=== PATIENT | female | born 1990 | race Caucasian/White ===

== ENCOUNTER → 2017-12-23 | Outpatient (CLI) | payer BC ==
[~2017-12-23] MED LIST: ALBU90OI INH; AMOX500 PO; Amoxicillin500 MG PO; Bactrim Ds Tab1 EACH PO; CEPH500 PO; CIPR500 PO; Cephalexin500 MG PO; Cleocin HCl300 MG PO; DOXY100 PO; HYDACE5 PO; HYDPAM50 PO; IBUP800 PO; MAGIC MOUTHWASH; MEDR150I IM; NAPR500 PO; Nasal & Sinus D30 MG PO; ONDA4 PO; ORTHOCYCLINE; OXYACE5T PO; PERM5TC TOP; PHENA200 PO; PROACE100 PO; PROC5 PO; PROM25 PO; RXHYDACE PO; RXONDA4ODT MM; RXOXYACE PO; RXSULTRIDS PO; RXTRAM50 PO; SULTRIDS PO; SULTRISS PO; TRAM50 PO; TYL; Verotin-Gr Cap1 EACH PO; [UNRECOGNIZED DRUG - OTHER]; [UNRECOGNIZED DRUG - REMARK]
[2017-12-24 12:12] LABS: Source VAG/CERVIX
== END ==
LOC: LAB SHORT 15:39 → LAB 15:39
PROVIDERS: Obstetrics & Gynecology
DX: Z36.89 Encounter for other specified antenatal screening (principal)
CPT/HCPCS: 87491; 87591; G0123

== ENCOUNTER → 2018-05-18 | Outpatient (CLI) | payer BC ==
[~2018-05-18] MED LIST changes: +Q-Tussin100 MG/5 M PO; +Zofran Odt4 MG PO
== END | disposition home or self-care (01) ==
LOC: LAB 18:03 → LAB SHORT 18:03
DX: Z34.80 Encounter for supervision of other normal pregnancy, unspecified trimester (principal)
CPT/HCPCS: 87081; 87653

== ENCOUNTER 2018-06-09 03:49 | Inpatient (IN) | payer BC ==
[~2018-06-09] VITALS: Ht 170.2 cm; Wt 89.8 kg
[2018-06-09 04:38] LABS: BASOPHILS ABSOLUTE AUTO 0.04 K/mm3 (0.00-0.23); BASOPHILS PERCENT AUTO 0 % (0-2); EOSINOPHILS ABSOLUTE AUTO 0.18 K/mm3 (0.00-0.68); EOSINOPHILS PERCENT AUTO 2 % (0-6); Hematocrit 33.3 % (33.0-51.0); Hemoglobin 10.9 g/dL (11.5-16.0); IMMATURE GRAN ABSOLUTE AUTO 0.08 K/mm3 (0.00-0.10); IMMATURE GRAN PERCENT AUTO 1 % (0-1); LYMPHOCYTES ABSOLUTE AUTO 2.53 K/mm3 (0.84-5.20); LYMPHOCYTES PERCENT AUTO 21 % (21-46); MONOCYTES ABSOLUTE AUTO 0.93 K/mm3 (0.16-1.47); MONOCYTES PERCENT AUTO 8 % (4-13); Mean Corpuscular HGB 27.7 pg (26.0-34.0); Mean Corpuscular HGB Conc 32.7 g/dL (31.5-36.5); Mean Corpuscular Volume 85 fL (80-100); Mean Platelet Volume 10.2 fL (9.1-12.4); NEUTROPHILS ABSOLUTE AUTO 8.51 K/mm3 (1.96-9.15); NEUTROPHILS PERCENT AUTO 69 % (41-73); Platelet Count 246 K/mm3 (150-400); RDW Coefficient Variation 14.3 % (11.7-14.2); Red Blood Cell Count 3.94 M/mm3 (3.80-5.20); White Blood Cell Count 12.27 K/mm3 (4.00-11.30)
[2018-06-10 06:06] LABS: Hematocrit 32.6 % (33.0-51.0); Hemoglobin 10.8 g/dL (11.5-16.0); Mean Corpuscular HGB 27.8 pg (26.0-34.0); Mean Corpuscular HGB Conc 33.1 g/dL (31.5-36.5); Mean Corpuscular Volume 84 fL (80-100); Mean Platelet Volume 10.5 fL (9.1-12.4); Platelet Count 225 K/mm3 (150-400); RDW Coefficient Variation 14.3 % (11.7-14.2); RDW Standard Deviation 43.4 fL (35.1-46.3); Red Blood Cell Count 3.89 M/mm3 (3.80-5.20); White Blood Cell Count 12.88 K/mm3 (4.00-11.30)
== END 2018-06-10 13:55 | disposition home or self-care (01) | DRG 775 ==
LOC: BC 03:49
PROVIDERS: Obstetrics & Gynecology
PROC: 10E0XZZ Delivery of Products of Conception, External Approach (ICD-10-PCS; principal; 2018-06-09)
PROC: 3E033VJ Introduction of Other Hormone into Peripheral Vein, Percutaneous Approach (ICD-10-PCS; 2018-06-09)
PROC: 3E0R3BZ Introduction of Anesthetic Agent into Spinal Canal, Percutaneous Approach (ICD-10-PCS; 2018-06-09)
PROC: 10907ZC Drainage of Amniotic Fluid, Therapeutic from Products of Conception, Via Natural or Artificial Opening (ICD-10-PCS; 2018-06-09)
DX: O80 Encounter for full-term uncomplicated delivery (principal); Z3A.39 39 weeks gestation of pregnancy; Z37.0 Single live birth
CPT/HCPCS: 36415; 51702; 85025; 85027; 85460; 87081; 96372; J1885; J2590; J2790; J3010; J7120

== ENCOUNTER 2018-10-29 22:12 | Emergency (ER) | payer BC, OTHER ==
[~2018-10-29] VITALS: Ht 172.7 cm; Wt 81.7 kg
[2018-10-29 23:00] LABS: BASOPHILS ABSOLUTE AUTO 0.09 K/mm3 (0.00-0.23); BASOPHILS PERCENT AUTO 1 % (0-2); EOSINOPHILS ABSOLUTE AUTO 0.11 K/mm3 (0.00-0.68); EOSINOPHILS PERCENT AUTO 1 % (0-6); Hematocrit 41.5 % (33.0-51.0); Hemoglobin 13.5 g/dL (11.5-16.0); IMMATURE GRAN ABSOLUTE AUTO 0.05 K/mm3 (0.00-0.10); IMMATURE GRAN PERCENT AUTO 0 % (0-1); LYMPHOCYTES ABSOLUTE AUTO 2.44 K/mm3 (0.84-5.20); LYMPHOCYTES PERCENT AUTO 17 % (21-46); MONOCYTES ABSOLUTE AUTO 0.64 K/mm3 (0.16-1.47); MONOCYTES PERCENT AUTO 5 % (4-13); Mean Corpuscular HGB Conc 32.5 g/dL (31.5-36.5); Mean Corpuscular Volume 86 fL (80-100); Mean Platelet Volume 9.9 fL (9.1-12.4); NEUTROPHILS ABSOLUTE AUTO 10.76 K/mm3 (1.96-9.15); NEUTROPHILS PERCENT AUTO 76 % (41-73); Platelet Count 289 K/mm3 (150-400); RDW Coefficient Variation 12.5 % (11.7-14.2); Red Blood Cell Count 4.83 M/mm3 (3.80-5.20); White Blood Cell Count 14.09 K/mm3 (4.00-11.30)
[2018-10-29 23:18] LABS: Alanine Aminotransfer (ALT/SGP 68 U/L (12-78); Albumin, Blood 4.2 g/dL (3.4-5.0); Albumin/Globulin Ratio 1.1 (0.8-1.8); Alk Phos 76 U/L (50-136); Anion Gap 10 mmol/L (6-16); Aspartate Aminotrans (AST/SGOT 86 U/L (12-37); Bilirubin, Total 0.3 mg/dL (0.1-1.0); Blood Urea Nitrogen 11 mg/dL (8-24); Bun/Creatinine Ratio 12.6 (12.0-20.0); CO2, Blood 28 mmol/L (21-32); Chloride, Blood 106 mmol/L (98-108); Creatinine, Blood 0.88 mg/dL (0.40-1.00); Globulin, Blood 3.8 g/dL (2.2-4.0); Glomerular Filtration Rate >60 (60-); Glucose, Blood 95 mg/dL (70-99); Potassium, Blood 3.3 mmol/L (3.5-5.5); Sodium, Blood 144 mmol/L (136-145)
[2018-10-30 00:11] LABS: Bilirubin, Urine Neg (Neg); Blood, Urine 4+ (Neg); Glucose Qualitative, Urine Neg (Neg); Ketones, Urine 1+ (Neg); Leukocyte Esterase, Urine 1+ (Neg); Nitrite, Urine Neg (Neg); Protein, Urine 2+ (Neg); Source, Urine Clean Catch; Urobilinogen, Urine NORM (Normal)
[2018-10-30] MEDS ORDERED: Protonix40 MG PO (00:13)
[2018-10-30] MEDS ORDERED: ONDA4ODT MM (00:13)
[2018-10-30 00:18] LABS: Appearance, Urine Clear (Clear); Color, Urine Yellow (P-Yellow)
[2018-10-30 00:20] LABS: Amorphous Light (0-Heavy); Bacteria Mod /hpf; Mucus Light (0-Heavy); Red Blood Cells, Urine 0-2 /hpf (0-2); Squamous Epithelial Cells Few /hpf (Few)
== END 2018-10-30 01:05 | disposition home or self-care (01) ==
LOC: ER 22:12
PROVIDERS: Emergency Medicine
DX: K29.70 Gastritis, unspecified, without bleeding (principal); F17.200 Nicotine dependence, unspecified, uncomplicated
CPT/HCPCS: 36415; 80053; 81001; 81025; 83690; 85025; 87086; 96374; 99283-25; J2405

== ENCOUNTER → 2018-12-24 | Outpatient (CLI) | payer BC, OTHER ==
[~2018-12-24] MED LIST changes: +ONDA4ODT MM; +Protonix40 MG PO
[2018-12-25 21:06] LABS: CHLAMYDIA TRACHOMATIS, NAA Negative (Negative); NEISSERIA GONORRHOEAE, NAA Negative (Negative)
== END | disposition home or self-care (01) ==
LOC: LAB SHORT 11:07 → LAB 11:07
PROVIDERS: Obstetrics & Gynecology
DX: Z11.3 Encounter for screening for infections with a predominantly sexual mode of transmission (principal)
CPT/HCPCS: 87491; 87591

== ENCOUNTER 2018-12-26 12:07 | Emergency (ER) | payer BC, OTHER ==
[~2018-12-26] VITALS: Ht 172.7 cm; Wt 78.9 kg
[2018-12-26 12:50] LABS: BASOPHILS ABSOLUTE AUTO 0.05 K/mm3 (0.00-0.23); BASOPHILS PERCENT AUTO 1 % (0-2); EOSINOPHILS ABSOLUTE AUTO 0.11 K/mm3 (0.00-0.68); EOSINOPHILS PERCENT AUTO 1 % (0-6); Hematocrit 44.7 % (33.0-51.0); Hemoglobin 14.6 g/dL (11.5-16.0); IMMATURE GRAN ABSOLUTE AUTO 0.02 K/mm3 (0.00-0.10); IMMATURE GRAN PERCENT AUTO 0 % (0-1); LYMPHOCYTES ABSOLUTE AUTO 2.41 K/mm3 (0.84-5.20); LYMPHOCYTES PERCENT AUTO 31 % (21-46); MONOCYTES PERCENT AUTO 5 % (4-13); Mean Corpuscular HGB 27.7 pg (26.0-34.0); Mean Corpuscular HGB Conc 32.7 g/dL (31.5-36.5); Mean Corpuscular Volume 85 fL (80-100); Mean Platelet Volume 10.2 fL (9.1-12.4); NEUTROPHILS ABSOLUTE AUTO 4.74 K/mm3 (1.96-9.15); NEUTROPHILS PERCENT AUTO 61 % (41-73); Platelet Count 283 K/mm3 (150-400); RDW Coefficient Variation 12.5 % (11.7-14.2); RDW Standard Deviation 38.6 fL (35.1-46.3); Red Blood Cell Count 5.27 M/mm3 (3.80-5.20); White Blood Cell Count 7.73 K/mm3 (4.00-11.30)
[2018-12-26 13:18] LABS: Alanine Aminotransfer (ALT/SGP 21 U/L (12-78); Albumin, Blood 4.4 g/dL (3.4-5.0); Albumin/Globulin Ratio 1.2 (0.8-1.8); Alk Phos 61 U/L (50-136); Anion Gap 6 mmol/L (6-16); Aspartate Aminotrans (AST/SGOT 11 U/L (12-37); Bilirubin, Total 0.4 mg/dL (0.1-1.0); Blood Urea Nitrogen 10 mg/dL (8-24); Bun/Creatinine Ratio 12.9 (12.0-20.0); CO2, Blood 29 mmol/L (21-32); Calcium, Blood 9.1 mg/dL (8.5-10.1); Chloride, Blood 107 mmol/L (98-108); Creatinine, Blood 0.77 mg/dL (0.40-1.00); Globulin, Blood 3.6 g/dL (2.2-4.0); Glomerular Filtration Rate >60 (60-); Glucose, Blood 96 mg/dL (70-99); Potassium, Blood 3.7 mmol/L (3.5-5.5); Sodium, Blood 142 mmol/L (136-145)
== END 2018-12-26 14:47 | disposition home or self-care (01) ==
LOC: ER 12:07
PROVIDERS: Physician Assistant
DX: N93.8 Other specified abnormal uterine and vaginal bleeding (principal); R53.1 Weakness; Z87.01 Personal history of pneumonia (recurrent)
CPT/HCPCS: 36415; 76830; 76856; 80053; 85025; 99284-25

== ENCOUNTER 2019-01-28 09:35 | Emergency (ER) | payer BC, OTHER ==
[~2019-01-28] VITALS: Ht 172.7 cm; Wt 81.7 kg
[2019-01-28 11:11] LABS: BASOPHILS ABSOLUTE AUTO 0.05 K/mm3 (0.00-0.23); BASOPHILS PERCENT AUTO 1 % (0-2); EOSINOPHILS ABSOLUTE AUTO 0.05 K/mm3 (0.00-0.68); EOSINOPHILS PERCENT AUTO 1 % (0-6); Hemoglobin 13.4 g/dL (11.5-16.0); IMMATURE GRAN ABSOLUTE AUTO 0.01 K/mm3 (0.00-0.10); IMMATURE GRAN PERCENT AUTO 0 % (0-1); LYMPHOCYTES ABSOLUTE AUTO 1.34 K/mm3 (0.84-5.20); LYMPHOCYTES PERCENT AUTO 22 % (21-46); MONOCYTES ABSOLUTE AUTO 0.52 K/mm3 (0.16-1.47); MONOCYTES PERCENT AUTO 9 % (4-13); Mean Corpuscular HGB 27.9 pg (26.0-34.0); Mean Corpuscular HGB Conc 31.9 g/dL (31.5-36.5); Mean Corpuscular Volume 88 fL (80-100); Mean Platelet Volume 10.8 fL (9.1-12.4); NEUTROPHILS ABSOLUTE AUTO 4.15 K/mm3 (1.96-9.15); NEUTROPHILS PERCENT AUTO 68 % (41-73); Platelet Count 251 K/mm3 (150-400); RDW Coefficient Variation 12.6 % (11.7-14.2); RDW Standard Deviation 40.5 fL (35.1-46.3); White Blood Cell Count 6.12 K/mm3 (4.00-11.30)
[2019-01-28 11:24] LABS: Anion Gap 9 mmol/L (6-16); Blood Urea Nitrogen 6 mg/dL (8-24); Bun/Creatinine Ratio 8.1 (12.0-20.0); CO2, Blood 21 mmol/L (21-32); Calcium, Blood 9.3 mg/dL (8.5-10.1); Chloride, Blood 111 mmol/L (98-108); Creatinine, Blood 0.74 mg/dL (0.40-1.00); Glomerular Filtration Rate >60 (60-); Glucose, Blood 106 mg/dL (70-99); Potassium, Blood 3.7 mmol/L (3.5-5.5); Sodium, Blood 141 mmol/L (136-145)
[2019-01-28 11:39] LABS: Source, Urine Clean Catch
[2019-01-28 11:42] LABS: Bilirubin, Urine Neg (Neg); Blood, Urine Neg (Neg); Glucose Qualitative, Urine Neg (Neg); Ketones, Urine 1+ (Neg); Leukocyte Esterase, Urine Neg (Neg); Nitrite, Urine Neg (Neg); Protein, Urine Neg (Neg); Urobilinogen, Urine NORM (Normal)
[2019-01-28 12:04] LABS: Appearance, Urine Clear (Clear); Color, Urine Yellow (P-Yellow)
[2019-01-28] MEDS ORDERED: Zofran4 MG PO (12:44)
[2019-01-28] MEDS ORDERED: Norco 5-325 Ta1 EACH PO (12:44)
== END 2019-01-28 13:15 | disposition home or self-care (01) ==
LOC: ER 09:35
PROVIDERS: Emergency Medicine
DX: I88.9 Nonspecific lymphadenitis, unspecified (principal); K08.89 Other specified disorders of teeth and supporting structures; R51 Headache; F17.200 Nicotine dependence, unspecified, uncomplicated; Z87.01 Personal history of pneumonia (recurrent)
CPT/HCPCS: 36415; 80048; 81003; 81025; 85025; 96361; 96374; 96375; 99283-25; J1100; J1885; J2405; J7030

== ENCOUNTER 2019-05-31 07:56 | Day surgery (SDC) | payer BC, SELFPAY ==
[~2019-05-31] VITALS: Ht 170.2 cm; Wt 80.7 kg
[~2019-05-31 07:56] MED LIST changes: +Norco 5-325 Ta1 EACH PO; +Zofran4 MG PO
--- NOTE | 2019-05-31 08:46 | NUR ---
Ambulatory in Day Surgery History, Chart, Medications and Allergies reviewed before start of procedure.Lungs clear T/O to Auscultation. Patient confirms NPO status and agrees with scheduled surgery. Patient reports completing Chlorhexadine shower X2 prior to admission to hospital.Patient States Post-Procedure ride home has been arranged.
--- NOTE | 2019-05-31 11:21 | NUR ---
Patient up to Ambulate independently. Gait steady. Discharge instructions reviewed with patient. Patient verbalizes understanding. Copy given to patient to take home. Patient States Post-Procedure ride home has been arranged. Discharged via wheelchair to private car for ride home.
== END 2019-05-31 22:45 | disposition home or self-care (01) ==
LOC: ORSCMMR 07:56 → ORD 09:30 → ORSCMMR 22:45
PROVIDERS: Surgery
PROC: 0JB90ZZ Excision of Buttock Subcutaneous Tissue and Fascia, Open Approach (ICD-10-PCS; principal; 2019-05-31 09:30)
DX: L05.01 Pilonidal cyst with abscess (principal); F17.210 Nicotine dependence, cigarettes, uncomplicated
CPT/HCPCS: 88304; A9270-GY; J0690; J2250; J2704; J2710; J3010; J7120

== ENCOUNTER 2019-09-13 20:12 | Emergency (ER) | payer OTHER ==
[~2019-09-13] VITALS: Ht 170.2 cm; Wt 79.4 kg
[2019-09-13 20:59] LABS: Influenza A Negative (NEGATIVE); Influenza B Positive (NEGATIVE)
[2019-09-13] MEDS ORDERED: ONDA4ODT MM (22:01)
[2019-09-13] MEDS ORDERED: Tamiflu75 MG PO (22:01)
== END 2019-09-13 22:06 | disposition home or self-care (01) ==
LOC: ER 20:12
PROVIDERS: Physician Assistant
DX: J10.1 Influenza due to other identified influenza virus with other respiratory manifestations (principal); F17.200 Nicotine dependence, unspecified, uncomplicated
CPT/HCPCS: 87804; 99283

== ENCOUNTER 2020-06-02 17:01 | Emergency (ER) | payer OTHER ==
[~2020-06-02] VITALS: Ht 170.2 cm; Wt 78.9 kg
[~2020-06-02 17:01] MED LIST changes: +Tamiflu75 MG PO
[2020-06-02] MEDS ORDERED: Norco 5-325 Ta1 EACH PO (18:12)
[2020-06-02] MEDS ORDERED: CEPH500 PO (18:12)
== END 2020-06-02 18:27 | disposition home or self-care (01) ==
LOC: ER 17:01
DX: L05.91 Pilonidal cyst without abscess (principal)
CPT/HCPCS: 10081; 99283-25

== ENCOUNTER → 2020-06-05 | Outpatient (CLI) | payer OTHER ==
[2020-06-05 15:12] LABS: BASOPHILS ABSOLUTE AUTO 0.08 K/mm3 (0.00-0.23); BASOPHILS PERCENT AUTO 1 % (0-2); EOSINOPHILS ABSOLUTE AUTO 0.18 K/mm3 (0.00-0.68); EOSINOPHILS PERCENT AUTO 2 % (0-6); Hematocrit 45.1 % (33.0-51.0); Hemoglobin 14.2 g/dL (11.5-16.0); IMMATURE GRAN ABSOLUTE AUTO 0.01 K/mm3 (0.00-0.10); IMMATURE GRAN PERCENT AUTO 0 % (0-1); LYMPHOCYTES ABSOLUTE AUTO 2.83 K/mm3 (0.84-5.20); LYMPHOCYTES PERCENT AUTO 37 % (21-46); MONOCYTES ABSOLUTE AUTO 0.54 K/mm3 (0.16-1.47); MONOCYTES PERCENT AUTO 7 % (4-13); Mean Corpuscular HGB Conc 31.5 g/dL (31.5-36.5); Mean Corpuscular Volume 92 fL (80-100); Mean Platelet Volume 10.6 fL (9.1-12.4); NEUTROPHILS ABSOLUTE AUTO 3.95 K/mm3 (1.96-9.15); NEUTROPHILS PERCENT AUTO 52 % (41-73); Platelet Count 282 K/mm3 (150-400); RDW Coefficient Variation 11.7 % (11.7-14.2); RDW Standard Deviation 39.6 fL (35.1-46.3); Red Blood Cell Count 4.89 M/mm3 (3.80-5.20); White Blood Cell Count 7.59 K/mm3 (4.00-11.30)
[2020-06-05 15:43] LABS: Alanine Aminotransfer (ALT/SGP 26 U/L (12-78); Albumin, Blood 4.1 g/dL (3.4-5.0); Alk Phos 63 U/L (50-136); Anion Gap 5 mmol/L (6-16); Aspartate Aminotrans (AST/SGOT 20 U/L (12-37); Bilirubin, Total 0.3 mg/dL (0.1-1.0); Blood Urea Nitrogen 12 mg/dL (8-24); Bun/Creatinine Ratio 17.6 (12.0-20.0); CO2, Blood 29 mmol/L (21-32); Calcium, Blood 9.7 mg/dL (8.5-10.1); Chloride, Blood 105 mmol/L (98-108); Creatinine, Blood 0.68 mg/dL (0.40-1.00); Globulin, Blood 4.1 g/dL (2.2-4.0); Glomerular Filtration Rate >60 (60-); Glucose, Blood 87 mg/dL (70-99); Potassium, Blood 3.8 mmol/L (3.5-5.5); Sodium, Blood 139 mmol/L (136-145); Total Protein, Blood 8.2 g/dL (6.4-8.2)
== END ==
LOC: LAB SHORT 13:34 → LAB 13:34
PROVIDERS: Nurse Practitioner Family
DX: Z13.29 Encounter for screening for other suspected endocrine disorder (principal); L05.91 Pilonidal cyst without abscess
CPT/HCPCS: 80053; 84443; 85025

== ENCOUNTER 2021-04-30 16:50 | Emergency (ER) | payer OTHER ==
[~2021-04-30] VITALS: Ht 170.2 cm; Wt 78.9 kg
== END 2021-04-30 18:00 | disposition home or self-care (01) ==
LOC: ER 16:50
DX: U07.1 COVID-19 (principal); F17.200 Nicotine dependence, unspecified, uncomplicated
CPT/HCPCS: 99282

== ENCOUNTER → 2021-12-21 | Outpatient (CLI) | payer OTHER ==
[2021-12-22 09:45] LABS: Candida species (DNA Probe) Negative (NEGATIVE); G. vaginalis (DNA Probe) Positive (NEGATIVE); T. vaginalis (DNA Probe) Negative (NEGATIVE)
[2021-12-23 00:10] LABS: CHLAMYDIA TRACHOMATIS, NAA Negative (Negative)
== END | disposition home or self-care (01) ==
LOC: LAB 12:27 → LAB SHORT 12:27
PROVIDERS: Chiropractor
DX: N94.10 Unspecified dyspareunia (principal); N89.8 Other specified noninflammatory disorders of vagina
CPT/HCPCS: 87070; 87205; 87480; 87491; 87510; 87591; 87660

== ENCOUNTER 2021-12-24 14:27 | Emergency (ER) | payer OTHER ==
[~2021-12-24] VITALS: Ht 172.7 cm; Wt 60.8 kg
[2021-12-24 16:04] LABS: BASOPHILS ABSOLUTE AUTO 0.07 K/mm3 (0.00-0.23); BASOPHILS PERCENT AUTO 1 % (0-2); EOSINOPHILS ABSOLUTE AUTO 0.03 K/mm3 (0.00-0.68); EOSINOPHILS PERCENT AUTO 0 % (0-6); Hematocrit 43.2 % (33.0-51.0); Hemoglobin 14.8 g/dL (11.5-16.0); IMMATURE GRAN ABSOLUTE AUTO 0.04 K/mm3 (0.00-0.10); IMMATURE GRAN PERCENT AUTO 0 % (0-1); LYMPHOCYTES ABSOLUTE AUTO 1.89 K/mm3 (0.84-5.20); LYMPHOCYTES PERCENT AUTO 16 % (21-46); MONOCYTES ABSOLUTE AUTO 0.52 K/mm3 (0.16-1.47); MONOCYTES PERCENT AUTO 4 % (4-13); Mean Corpuscular HGB 29.2 pg (26.0-34.0); Mean Corpuscular HGB Conc 34.3 g/dL (31.5-36.5); Mean Corpuscular Volume 85 fL (80-100); Mean Platelet Volume 10.2 fL (9.1-12.4); NEUTROPHILS ABSOLUTE AUTO 9.56 K/mm3 (1.96-9.15); NEUTROPHILS PERCENT AUTO 79 % (41-73); Platelet Count 317 K/mm3 (150-400); RDW Coefficient Variation 11.7 % (11.7-14.2); RDW Standard Deviation 35.9 fL (35.1-46.3); Red Blood Cell Count 5.06 M/mm3 (3.80-5.20); White Blood Cell Count 12.11 K/mm3 (4.00-11.30)
[2021-12-24 16:17] LABS: Alanine Aminotransfer (ALT/SGP 29 U/L (12-78); Albumin, Blood 4.8 g/dL (3.4-5.0); Albumin/Globulin Ratio 1.6 (0.8-1.8); Alk Phos 46 U/L (50-136); Anion Gap 6 mmol/L (6-16); Aspartate Aminotrans (AST/SGOT 18 U/L (12-37); Bilirubin, Total 0.7 mg/dL (0.1-1.0); Blood Urea Nitrogen 7 mg/dL (8-24); Bun/Creatinine Ratio 9.8 (12.0-20.0); CO2, Blood 25 mmol/L (21-32); Calcium, Blood 9.7 mg/dL (8.5-10.1); Chloride, Blood 107 mmol/L (98-108); Creatinine, Blood 0.71 mg/dL (0.40-1.00); Glomerular Filtration Rate >60 (60-); Glucose, Blood 116 mg/dL (70-99); Potassium, Blood 3.5 mmol/L (3.5-5.5); Sodium, Blood 138 mmol/L (136-145); Total Protein, Blood 7.8 g/dL (6.4-8.2)
[2021-12-24 16:34] LABS: Source, Urine Clean Catch
[2021-12-24 16:41] LABS: Influenza A, PCR NEGATIVE (NEGATIVE); Influenza B, PCR NEGATIVE (NEGATIVE); Resp Syncytial Virus, PCR NEGATIVE (NEGATIVE); SARS-Cov-2 (COVID-19) PCR, MMC NEGATIVE (NEGATIVE)
[2021-12-24 16:59] LABS: Appearance, Urine Clear (Clear); Bilirubin, Urine Neg (Neg); Blood, Urine Neg (Neg); Color, Urine Yellow (P-Yellow); Glucose Qualitative, Urine Neg (Neg); Ketones, Urine 1+ (Neg); Leukocyte Esterase, Urine Neg (Neg); Nitrite, Urine Neg (Neg); Protein, Urine Neg (Neg); Urobilinogen, Urine NORM (Normal)
[2021-12-24] MEDS ORDERED: ONDA4ODT MM (17:37)
[2021-12-24] MEDS ORDERED: Norco 5-325 Ta1 EACH PO (17:37)
== END 2021-12-24 17:56 | disposition home or self-care (01) ==
LOC: ER 14:27
PROVIDERS: Physician Assistant
DX: N83.209 Unspecified ovarian cyst, unspecified side (principal); Z20.822 Contact with and (suspected) exposure to COVID-19
CPT/HCPCS: 0241U; 36415; 80053; 81003; 84703; 85025; 96374; 96375; 99284-25; J1885; J2405; J7030

== ENCOUNTER 2022-09-03 15:02 | Emergency (ER) | payer OTHER ==
[~2022-09-03] VITALS: Ht 170.2 cm; Wt 56.7 kg
[2022-09-03 16:25] LABS: Source, Urine Clean Catch
[2022-09-03 16:29] LABS: Bilirubin, Urine Neg (Neg); Blood, Urine Neg (Neg); Glucose Qualitative, Urine Neg (Neg); Ketones, Urine Neg (Neg); Leukocyte Esterase, Urine Neg (Neg); Nitrite, Urine Neg (Neg); Protein, Urine 2+ (Neg); Specific Gravity, Urine 1.005 (1.003-1.022); Urobilinogen, Urine NORM (Normal)
[2022-09-03 16:36] LABS: Appearance, Urine Clear (Clear); Color, Urine Pale Yellow (P-Yellow)
[2022-09-03 16:37] LABS: Amorphous Light (0-Heavy); Bacteria Few /hpf; Red Blood Cells, Urine 0-2 /hpf (0-2); Squamous Epithelial Cells Few /hpf (Few); White Blood Cells, Urine 0-2 /hpf (0-5)
== END 2022-09-03 17:23 | disposition home or self-care (01) ==
LOC: ER 15:02
PROVIDERS: Physician Assistant
DX: J02.8 Acute pharyngitis due to other specified organisms (principal); E28.2 Polycystic ovarian syndrome; Z79.899 Other long term (current) drug therapy; F17.200 Nicotine dependence, unspecified, uncomplicated
CPT/HCPCS: 81001; 81025; 87430; J1885

== ENCOUNTER → 2024-08-21 | Outpatient (CLI) | payer OTHER | LOC: LAB SHORT 15:08 → LAB 15:08 | DX: J02.9 Acute pharyngitis, unspecified (principal) | CPT/HCPCS: 87081 ==

== ENCOUNTER 2025-03-31 14:14 | Emergency (ER) | payer OTHER ==
[~2025-03-31] VITALS: Ht 165.1 cm; Wt 54.4 kg
[2025-03-31 16:10] LABS: U Amphetamine Screen DETECTED; U Barbituate Screen Not Detected; U Methamphetamine Screen Not Detected
[2025-03-31 16:11] LABS: U Benzodiazapine Screen Not Detected; U Buprenorphine Screen Not Detected; U Cannabinoids Screen DETECTED; U Cocaine Screen Not Detected; U Methadone Screen Not Detected; U Opiates Screen Not Detected; U Oxycodone Screen Not Detected; U Phencyclidine Screen Not Detected
[2025-03-31 17:31] VITALS: BP 129/85
[2025-03-31] MEDS ORDERED: AMPDEX10 (17:33)
[2025-03-31] MEDS ORDERED: HYDHCL25 PO (18:10)
== END 2025-03-31 18:30 | disposition home or self-care (01) ==
LOC: ER 14:14
PROVIDERS: Physician Assistant
DX: F12.90 Cannabis use, unspecified, uncomplicated (principal); F41.9 Anxiety disorder, unspecified; Z88.8 Allergy status to other drugs, medicaments and biological substances; Z79.899 Other long term (current) drug therapy; F17.200 Nicotine dependence, unspecified, uncomplicated
CPT/HCPCS: 99283

== ENCOUNTER 2025-04-01 01:28 | Observation (INO) | payer OTHER ==
[~2025-04-01] VITALS: Ht 167.6 cm; Wt 65.8 kg
[~2025-04-01 01:28] MED LIST changes: +AMPDEX10; +HYDHCL25 PO
[2025-04-01 01:38] VITALS: BP 133/78
[2025-04-01 02:10] LABS: BASOPHILS ABSOLUTE AUTO 0.10 K/mm3 (0.00-0.23); BASOPHILS PERCENT AUTO 1 % (0-2); EOSINOPHILS ABSOLUTE AUTO 0.05 K/mm3 (0.00-0.68); EOSINOPHILS PERCENT AUTO 1 % (0-6); Hematocrit 43.4 % (33.0-51.0); Hemoglobin 15.2 g/dL (11.5-16.0); IMMATURE GRAN ABSOLUTE AUTO 0.02 K/mm3 (0.00-0.10); IMMATURE GRAN PERCENT AUTO 0 % (0-1); LYMPHOCYTES ABSOLUTE AUTO 2.87 K/mm3 (0.84-5.20); LYMPHOCYTES PERCENT AUTO 32 % (21-46); MONOCYTES ABSOLUTE AUTO 0.63 K/mm3 (0.16-1.47); MONOCYTES PERCENT AUTO 7 % (4-13); Mean Corpuscular HGB Conc 35.0 g/dL (31.5-36.5); Mean Corpuscular Volume 87 fL (80-100); NEUTROPHILS ABSOLUTE AUTO 5.24 K/mm3 (1.96-9.15); NEUTROPHILS PERCENT AUTO 59 % (41-73); NRBC ABSOLUTE 0.00 K/mm3 (0.00-0.02); NRBC Auto 0.0 /100 WBC (0.0-0.2); Platelet Count 319 K/mm3 (150-400); RDW Coefficient Variation 11.2 % (11.7-14.2); RDW Standard Deviation 35.6 fL (35.1-46.3)
[2025-04-01 02:12] LABS: Alanine Aminotransfer (ALT/SGP 23.0 U/L (12-78); Albumin, Blood 5.0 g/dL (3.4-5.0); Albumin/Globulin Ratio 1.6 (0.8-1.8); Anion Gap 10.0 mmol/L (3-11); Aspartate Aminotrans (AST/SGOT 21.0 U/L (12-37); Bilirubin, Total 0.7 mg/dL (0.1-1.0); Blood Urea Nitrogen 14.0 mg/dL (8-24); CO2, Blood 28.0 mmol/L (21-32); Calcium, Blood 9.2 mg/dL (8.5-10.1); Chloride, Blood 104.0 mmol/L (98-108); Creatinine, Blood 0.94 mg/dL (0.40-1.00); Globulin, Blood 3.2 g/dL (2.2-4.0); Glucose, Blood 127.0 mg/dL (70-99); Potassium, Blood 3.6 mmol/L (3.5-5.5); Sodium, Blood 138.0 mmol/L (136-145); Total Protein, Blood 8.2 g/dL (6.4-8.2)
[2025-04-01] MEDS ORDERED: NS 1,000 ML IV SCH (03:30)
[2025-04-01] MEDS ORDERED: Diazepam 5 MG / ML 2ML SYR IV ONE (04:30)
[2025-04-01 06:21] LABS: Source, Urine Clean Catch
[2025-04-01 06:27] LABS: Bilirubin, Urine Neg (Neg); Glucose Qualitative, Urine Neg (Neg); Ketones, Urine Neg (Neg); Leukocyte Esterase, Urine Neg (Neg); Protein, Urine 1+ (Neg); Specific Gravity, Urine 1.010 (1.003-1.022); Urobilinogen, Urine NORM (Normal)
[2025-04-01 06:39] LABS: U Cannabinoids Screen DETECTED
[2025-04-01 06:40] LABS: U Amphetamine Screen DETECTED; U Barbituate Screen Not Detected; U Benzodiazapine Screen Not Detected; U Buprenorphine Screen Not Detected; U Cocaine Screen Not Detected; U Methadone Screen Not Detected; U Methamphetamine Screen Not Detected; U Opiates Screen Not Detected; U Oxycodone Screen Not Detected; U Phencyclidine Screen Not Detected
[2025-04-01 07:17] LABS: Color, Urine Pale Yellow (P-Yellow)
[2025-04-01 07:18] LABS: Red Blood Cells, Urine 0-2 /hpf (0-2); White Blood Cells, Urine 0-2 /hpf (0-5)
[2025-04-01] MEDS ORDERED: Ondansetron 4 MG SoluTab SL ONE (07:45)
== END 2025-04-01 14:20 | disposition other institution (70) ==
LOC: ER 01:28 → EOR 01:29
PROVIDERS: ADMIT Emergency Medicine
DX: F32.A Depression, unspecified (principal); F43.25 Adjustment disorder with mixed disturbance of emotions and conduct; F90.9 Attention-deficit hyperactivity disorder, unspecified type; F12.10 Cannabis abuse, uncomplicated; F17.200 Nicotine dependence, unspecified, uncomplicated; Z86.14 Personal history of Methicillin resistant Staphylococcus aureus infection; Z79.899 Other long term (current) drug therapy; Z88.6 Allergy status to analgesic agent; Z91.038 Other insect allergy status
CPT/HCPCS: 80053; 81001; 84703; 85025; 96374; 99285-25; A9270; G0378; J3360; J7030

== ENCOUNTER 2025-04-01 10:52 | Inpatient (IN) | payer OTHER ==
[~2025-04-01] VITALS: Ht 172.7 cm; Wt 55.1 kg
[2025-04-01] MEDS ORDERED: Ondansetron 4 MG SoluTab MM PRN (13:55)
[2025-04-01] MEDS ORDERED: Polyethylene Glycol 3350 17 gm PO PRN (13:55)
[2025-04-01] MEDS ORDERED: DiphenhydrAMINE HCl 50 MG/ML 1ML Vial IM PRN (14:00)
[2025-04-01] MEDS ORDERED: Haloperidol Lactate Inj. 5 MG/ML Injection IM PRN (14:00)
[2025-04-01] MEDS ORDERED: Aluminum Hydroxide 320MG/5ML 473 ML PO PRN (14:05)
[2025-04-01 14:38] VITALS: BP 126/85
[2025-04-01 15:14] VITALS: BP 126/85
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
[2025-04-01 19:21] VITALS: BP 127/82
--- NOTE | 2025-04-02 04:45 | NUR ---
SHIFT SUMMARY: PATIENT WAS IN THE DINING ROOM EATING DINNER AT THE BEGINNING OF THE SHIFT. SHE CAME OUT AND SAT IN A CHAIR IN THE HALLWAY AND CURLED UP IN A BALL. PEER APPROACHED HER AND BEGAN TALKING TO HER IN A PLEASANT MANNER, AND SHE ENGAGED APPROPRIATELY IN CONVERSATION. SHE WAS ABLE TO ANSWER AIR LAUNCH WEAPONS TECHNICIAN QUESTIONS IN A LOGICAL AND LINEAR MANNER. SHE WAS COOPERATIVE WITH CARES, AND COMPLIANT WITH EVENING MEDICATIONS. SHE DENIED SUICIDAL IDEATION, THOUGHTS OF SELF HARMING AND A/V/T HALLUCINATIONS. SHE SPENT TIME ON THE PATIO WITH SOME OF HER PEERS AND ENGAGED IN THE CONVERSATIONS. SHE PARTICIPATED IN SNACK AND WRAP UP GROUP AT 2030, THEN WENT TO HER ROOM WHERE SHE WAS NOTED TO BE RESTING QUIETLY WITH EYES CLOSED AND RESPIRATIONS CONFIRMED FOR THE REMAINDER OF THE SHIFT. CONTINUING TO MONITOR FOR SAFETY WITH Q15 MINUTE CHECKS.
[2025-04-02 07:39] LABS: CHOL/HDL RATIO 2.1; Cholesterol 113 mg/dL (50-200); HDL Cholesterol 53 mg/dL (>39); LDL/HDL RATIO 0.9; Low Density Lipoprotein Chol 46 mg/dL (0-110); Triglycerides 70 mg/dL (30-140); Very Low Density Lipoprot Chol 14 mg/dL (6-28)
[2025-04-02 08:46] VITALS: BP 130/83
[2025-04-02] MEDS ORDERED: Multivitamins 1 Tab PO SCH (09:00)
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
[2025-04-02 19:58] VITALS: BP 135/77
--- NOTE | 2025-04-03 05:59 | NUR ---
SHIFT SUMMARY Pt is A&O, cooperative, tearful at times, eye contact is good. Pt s mood is good, affect is sad. Pt denies SI, HI, and hallucinations. She endorsed period pain 5/10w, which did not improve with PRN acetaminophen. Pt became tearful during the assessment, stating that she missed her kids, dog, and horse. She also discussed her pain, which she feels might be endometriosis, as her mother was diagnosed with this and had to have a hysterectomy. Pt was active in the milieu during the evening, watching TV and pleasantly interacting with peers and staff. Staff continues to monitor q15m for safety and wellness.
[2025-04-03 09:11] VITALS: BP 134/86
--- NOTE | 2025-04-03 12:22 | NUR ---
Somatic complaints-and mood 1) Patient complained of shocking sensations that travel up the vaginal canal. She states that she has heavy, clotty periods. She states her mother has a history of endometriosis. This advertising writer talked with Dr. Summers, and Dr. Burch today. Because this is not a new onset (3 years), and because the patient is short stay here, we suggeted to the patient that she follows up on the outside with her primary. Side note- the patient may or may not have an IUD in place. She said that she had one placed, but thinks the provider removed it, although she doesn't remember the procedure of removal. If the IUD is infact still in place, it is the kind that does not have hormones. This type of IUD is known to cause heavy painful periods. 2) As we were talking about a possible swab (for std, which the patient mistook for an oral swab) she stats that she would like a swab because she has noticed that her tongue is larger than usual, has crackes on the sides, and is getting bumps on the back of it. This advertising writer looked a the patients tongue. The bumps are normal on the back of the tongue, it doesn't appear to be larger than it should be, and no cracks were observed. 3) Patients mood is described as good but she appears labile moving easily from happy, smiling to tears and feeling bad. She states that her anxiety is the most bothersome. She says that her adderall was not a good medication for her, increasing her anxiety. She states that she is autistic, and so are both of her parents -"well for sure at least one of them is". Patient is interactive, friendly and helpful to her peers.
--- NOTE | 2025-04-03 17:10 | NUR ---
Shift Summary- 04/03/25 Please also see previous notes for today. Patient is alert and orientated. Appears to be labile, but is happy more of the time than sad. She can flip from a smile to tears in seconds however, when something in the conversation upsets her. She has participated on the unit in groups. Patient also advocated for a peer who she noticed was struggling while she was in her room. Patient denies any suicidal thinking, homicidal ideation and all types of hallucination. She showered this morning and eats some of each meal. Patient has been talking to loved ones this afternoon on the phone- Mom, and . Patient has had no further complaints this shift about pain or any other issue.
[2025-04-03 19:27] VITALS: BP 125/91
--- NOTE | 2025-04-04 05:19 | NUR ---
SHIFT SUMMARY Pt is A&O, cooperative, eye contact is good. Pt s mood is fine, affect is euthymic. Pt denies SI, HI, and hallucinations. She endorsed period pain 3/10w. Pt was much brighter today after speaking to the staff and provider concerning her issues. She promised to follow up with her TRENCH DIGGER HELPER after discharge regarding her heavy periods. Pt received PRN trazodone, melatonin, and acetaminophen HS. She removed her nicotine patch at 2110. Staff continues to monitor q15m for safety and wellness.
[2025-04-04 09:01] VITALS: BP 122/84
--- NOTE | 2025-04-04 16:59 | NUR ---
SHIFT SUMMARY: PT ALERT, ORIENTED AND COOPERATIVE WITH CARE. DENIES SI, HI AND AVH. C/O SWELLLING TO HER TONGUE THAT SHE REPORTS HAS BEEN AN ONGOING ISSUE. NO OBVIOUS SWELLING NOTED, PT ABLE TO SPEAK WITHOUT DIFFICULTY AND DENIES DIFFICULTY BREATHING. PT WITHOUT S/S OF DISTRESS, PROVIDER NOTIFIED AT TEAM MEETING AND DISCUSSED THAT PT COULD USE BENADRYL IF SYMPTOMS PERSIST. PT DID NOT C/O OF ANY FURTHER ISSUES THROUGHOUT THE SHIFT. PT ATTENDED GROUPS AND SPENT TIME IN THE DAY ROOM. ACTIVE IN THE UNIT MILIEU. SHE HAD A VISIT WITH HER S/O WHICH APPEARED TO GO WELL AND SPOKE WITH HER MOM ON THE PHONE.
[2025-04-04 20:43] VITALS: BP 122/95
--- NOTE | 2025-04-05 05:42 | NUR ---
SHIFT SUMMARY Pt is A&O, cooperative, eye contact is good. Pt s mood is I feel great, affect is congruent to stated mood. Pt denies SI, HI, and hallucinations. Pt also denies current pain. RN explained that pt will be started on olanzapine 2.5mg tonight and educated on purpose of the medication. Pt stated that she had two BMs today. She stated that after d/c she plans on following up with her OUTSIDE OPERATOR and [employer]. Pt spent the evening in the TV room with peers. Staff continues to monitor q15m for safety and wellness.
[2025-04-05 07:13] VITALS: BP 113/77
--- NOTE | 2025-04-05 10:19 | NUR ---
CHARTED MODIFIED AGITATION SCALE ON INCORRECT PT. INTERVENTION UNDONE.
--- NOTE | 2025-04-05 18:13 | NUR ---
SHIFT SUMMARY NO ACUTE CHANGES THIS SHIFT. PT IS A/O X4; PLEASANT AND COOPERATIVE WITH CARE. SHE DENIES SI, HI, AVTH. PT REPORTS THAT SHE IS FEELING MUCH BETTER AND FEELS THAT THE MEDICATIONS ARE WORKING WELL FOR HER. SHE ATTENDS ALL GROUPS, MEALS, AND MILEU ACTIVITIES. SHE CONTINUES TO BE MONITORED Q15 FOR SAFETY AND WELLNESS.
[2025-04-05 20:54] VITALS: BP 127/101
--- NOTE | 2025-04-06 04:39 | NUR ---
SHIFT SUMMARY: PATIENT WAS IN THE DINING ROOM EATING DINNER AT THE BEGINNING OF THE SHIFT. SHE CAME OUT WHEN FINISHED AND GREETED STAFF. SHE WAS ABLE TO ANSWER PIG LEAD MELTER HELPER QUESTIONS IN A LOGICAL AND LINEAR MANNER. SHE WANTS TO SEE THE PRESS OPERATOR ASSISTANT IN THE MORNING, AND IS EXCITED ABOUT LEAVING ON 04/05/25. SHE STATED THAT "IT'S A LITTLE FUNNY THAT I'M GOING TO MY MOM'S" BUT "I WANT THINGS TO WORK OUT". SHE WAS PLEASANT AND COOPERATIVE WITH CARES. SHE DENIED SUICIDAL IDEATION, THOUGHTS OF SELF HARMING, AND A/V/T HALLUCINATIONS. SHE REMAINED IN THE DAY ROOM WITH PEERS AND STAFF, GOING OUT ON THE PATIO AND CONVERSING WITH OTHERS. SHE PARTICIPATED IN SNACK AND WRAP UP GROUP AT 2030, THEN WENT TO HER ROOM, WHERE SHE WAS NOTED TO BE READING FOR A TIME. SHE WAS RESTING IN BED BY 2200, AND CONTINUED TO DO SO THROUGHOUT PLANT ELECTRICAL ENGINEER. CONTINUING TO MONITOR FOR SAFETY WITH Q15 MINUTE CHECKS.
[2025-04-06 07:16] VITALS: BP 130/87
--- NOTE | 2025-04-06 08:00 | NUR ---
IMPORTANT DISCHARGE INFORMATION PATIENT TO BE DISCHARGED TODAY. [facility] TO PICK HER UP AROUND 1PM. THEY WILL CALL BACK WITH CONFORMATION [phone]. FOLLOW UP WITH HARIS SCHAEFER [place], PCP SHARON BARRIENTOS ON 04/11/25 AT 11:00AM. FOLLOW UP WITH [facility]: AISHWARYA SCHAEFER [facility] FAX
[2025-04-06] MEDS ORDERED: OLAN2.5 PO (08:27)
[2025-04-06] MEDS ORDERED: SERT25 PO (08:28)
--- NOTE | 2025-04-06 11:25 | NUR ---
DISCHARGE PT DISCHARGED W/ BELONGINGS. FORMS SIGNED AND INFORMATION/EDUCATION GIVEN. NO ACUTE EVENTS TODAY. PT DENIED SI, HI, AVTH. AND ENDORSED BEING "eXCITED ABOUT DISCHARGE. PT REQUESTED TO DISCHARGE EARLY AND WAIT FOR MOM TO PICK HER UP, STATED MOM WILL COME EARLIER.
== END 2025-04-06 11:15 | disposition home or self-care (01) | DRG 882 ==
LOC: BHU 10:52
PROVIDERS: ADMIT Psychiatry & Neurology Psychiatry
DX: F43.25 Adjustment disorder with mixed disturbance of emotions and conduct (principal); F23 Brief psychotic disorder; F12.10 Cannabis abuse, uncomplicated; F90.9 Attention-deficit hyperactivity disorder, unspecified type; Z88.8 Allergy status to other drugs, medicaments and biological substances; Z91.030 Bee allergy status; Z91.038 Other insect allergy status
CPT/HCPCS: 36415; 80061; 83036; A9270

== ENCOUNTER 2025-04-30 16:24 | Emergency (ER) | payer OTHER ==
[~2025-04-30] VITALS: Ht 170.2 cm; Wt 59.0 kg
[~2025-04-30 16:24] MED LIST changes: +OLAN2.5 PO; +SERT25 PO
[2025-04-30 17:29] LABS: BASOPHILS ABSOLUTE AUTO 0.11 K/mm3 (0.00-0.23); BASOPHILS PERCENT AUTO 1 % (0-2); EOSINOPHILS ABSOLUTE AUTO 0.03 K/mm3 (0.00-0.68); EOSINOPHILS PERCENT AUTO 0 % (0-6); Hematocrit 43.4 % (33.0-51.0); Hemoglobin 14.9 g/dL (11.5-16.0); IMMATURE GRAN ABSOLUTE AUTO 0.01 K/mm3 (0.00-0.10); IMMATURE GRAN PERCENT AUTO 0 % (0-1); LYMPHOCYTES ABSOLUTE AUTO 2.37 K/mm3 (0.84-5.20); LYMPHOCYTES PERCENT AUTO 29 % (21-46); MONOCYTES ABSOLUTE AUTO 0.42 K/mm3 (0.16-1.47); MONOCYTES PERCENT AUTO 5 % (4-13); Mean Corpuscular HGB Conc 34.3 g/dL (31.5-36.5); Mean Corpuscular Volume 86 fL (80-100); NEUTROPHILS ABSOLUTE AUTO 5.14 K/mm3 (1.96-9.15); NEUTROPHILS PERCENT AUTO 64 % (41-73); NRBC ABSOLUTE 0.00 K/mm3 (0.00-0.02); NRBC Auto 0.0 /100 WBC (0.0-0.2); Platelet Count 311 K/mm3 (150-400); RDW Coefficient Variation 11.4 % (11.7-14.2); RDW Standard Deviation 35.6 fL (35.1-46.3)
[2025-04-30 17:35] LABS: Source, Urine Clean Catch
[2025-04-30 17:45] LABS: Bilirubin, Urine Neg (Neg); Color, Urine Yellow (P-Yellow); Glucose Qualitative, Urine Neg (Neg); Ketones, Urine Neg (Neg); Leukocyte Esterase, Urine Neg (Neg); Protein, Urine 2+ (Neg); Specific Gravity, Urine 1.020 (1.003-1.022); Urobilinogen, Urine 1+ (Normal)
[2025-04-30 17:53] LABS: Alanine Aminotransfer (ALT/SGP 25.0 U/L (12-78); Albumin, Blood 4.4 g/dL (3.4-5.0); Albumin/Globulin Ratio 1.3 (0.8-1.8); Anion Gap 4.0 mmol/L (3-11); Aspartate Aminotrans (AST/SGOT 17.0 U/L (12-37); Bilirubin, Total 0.7 mg/dL (0.1-1.0); Blood Urea Nitrogen 12.0 mg/dL (8-24); CO2, Blood 32.0 mmol/L (21-32); Calcium, Blood 9.1 mg/dL (8.5-10.1); Chloride, Blood 107.0 mmol/L (98-108); Creatinine, Blood 0.85 mg/dL (0.40-1.00); Globulin, Blood 3.5 g/dL (2.2-4.0); Glucose, Blood 109.0 mg/dL (70-99); Potassium, Blood 3.3 mmol/L (3.5-5.5); Sodium, Blood 140.0 mmol/L (136-145); Total Protein, Blood 7.9 g/dL (6.4-8.2)
[2025-04-30] MEDS ORDERED: Ketorolac Tromethamine 15mg Vial IV ONE (19:25)
[2025-04-30 20:12] VITALS: BP 117/70
== END 2025-04-30 20:12 | disposition home or self-care (01) ==
LOC: ER 16:24
PROVIDERS: Student in an Organized Health Care Education/Training Program
DX: F43.20 Adjustment disorder, unspecified (principal); N94.6 Dysmenorrhea, unspecified; R51.9 Headache, unspecified; F17.200 Nicotine dependence, unspecified, uncomplicated
CPT/HCPCS: 80053; 81001; 81025; 85025; 96374; 99283; A9270; J1885

== ENCOUNTER 2025-04-30 22:37 | Emergency (ER) | payer OTHER ==
[~2025-04-30] VITALS: Ht 170.2 cm; Wt 59.0 kg
[2025-04-30 23:14] VITALS: BP 112/85
[2025-05-01 01:40] LABS: Chlamydia Trachomatis Urine NOT DETECTED (NOT DETECT); Neisseria Gonorrhoea Urine NOT DETECTED (NOT DETECT)
== END 2025-05-01 01:51 | disposition home or self-care (01) ==
LOC: ER 22:37
PROVIDERS: Student in an Organized Health Care Education/Training Program
DX: Z11.3 Encounter for screening for infections with a predominantly sexual mode of transmission (principal); F39 Unspecified mood [affective] disorder; N94.6 Dysmenorrhea, unspecified; R51.9 Headache, unspecified; F17.200 Nicotine dependence, unspecified, uncomplicated
CPT/HCPCS: 80053; 81001; 81025; 85025; 87491; 87591; 96374; 99283; A9270; J1885

== ENCOUNTER 2025-06-16 16:38 | Emergency (ER) | payer OTHER ==
[~2025-06-16] VITALS: Ht 170.2 cm; Wt 59.0 kg
[2025-06-16 16:42] VITALS: BP 128/91
[2025-06-16] MEDS ORDERED: RX Prepack 6 Tabs Oxycodone 5mg UD ONE (19:50)
[2025-06-16] MEDS ORDERED: Percocet 5-3251 EACH PO (19:56)
[2025-06-16] MEDS ORDERED: ONDA4ODT MM (19:56)
== END 2025-06-16 20:02 | disposition home or self-care (01) ==
LOC: ER 16:38
DX: S02.5XXA Fracture of tooth (traumatic), initial encounter for closed fracture (principal); K02.9 Dental caries, unspecified; X58.XXXA Exposure to other specified factors, initial encounter
CPT/HCPCS: 99282; A9270

== ENCOUNTER 2025-08-21 20:13 | Observation (INO) | payer OTHER ==
[~2025-08-21] VITALS: Ht 162.6 cm; Wt 59.0 kg
[~2025-08-21 20:13] MED LIST changes: +Percocet 5-3251 EACH PO
[2025-08-21] MEDS ORDERED: Ondansetron HCl 2 MG / ML 2ML Vial IV ONE (20:45)
[2025-08-21 21:11] LABS: BASOPHILS ABSOLUTE AUTO 0.15 K/mm3 (0.00-0.23); BASOPHILS PERCENT AUTO 1 % (0-2); EOSINOPHILS ABSOLUTE AUTO 0.06 K/mm3 (0.00-0.68); EOSINOPHILS PERCENT AUTO 0 % (0-6); Hematocrit 40.2 % (33.0-51.0); Hemoglobin 14.0 g/dL (11.5-16.0); IMMATURE GRAN ABSOLUTE AUTO 0.05 K/mm3 (0.00-0.10); IMMATURE GRAN PERCENT AUTO 0 % (0-1); LYMPHOCYTES ABSOLUTE AUTO 4.11 K/mm3 (0.84-5.20); LYMPHOCYTES PERCENT AUTO 30 % (21-46); MONOCYTES ABSOLUTE AUTO 0.76 K/mm3 (0.16-1.47); MONOCYTES PERCENT AUTO 6 % (4-13); Mean Corpuscular HGB Conc 34.8 g/dL (31.5-36.5); Mean Corpuscular Volume 85 fL (80-100); NEUTROPHILS ABSOLUTE AUTO 8.74 K/mm3 (1.96-9.15); NEUTROPHILS PERCENT AUTO 63 % (41-73); NRBC ABSOLUTE 0.00 K/mm3 (0.00-0.02); NRBC Auto 0.0 /100 WBC (0.0-0.2); Platelet Count 320 K/mm3 (150-400); RDW Coefficient Variation 11.9 % (11.7-14.2); RDW Standard Deviation 36.8 fL (35.1-46.3)
[2025-08-21] MEDS ORDERED: Magnesium Sulf 2 GM/Water 50ML 50 ML IV ONE (21:20)
[2025-08-21] MEDS ORDERED: Metoclopramide HCl 5MG / ML 2ML Vial IV ONE (21:30)
[2025-08-21 21:32] LABS: Acetaminophen, Random <2.0 ug/mL (10.0-30.0); Alanine Aminotransfer (ALT/SGP 46 U/L (12-78); Albumin, Blood 3.8 g/dL (3.4-5.0); Albumin/Globulin Ratio 1.1 (0.8-1.8); Anion Gap 15 mmol/L (3-11); Aspartate Aminotrans (AST/SGOT 84 U/L (12-37); Bilirubin, Total 0.2 mg/dL (0.1-1.0); Blood Urea Nitrogen 5 mg/dL (8-24); CO2, Blood 20 mmol/L (21-32); Calcium, Blood 8.6 mg/dL (8.5-10.1); Chloride, Blood 109 mmol/L (98-108); Creatinine, Blood 0.60 mg/dL (0.40-1.00); Ethanol (Alcohol), Blood, Med 180 mg/dL; Globulin, Blood 3.4 g/dL (2.2-4.0); Glucose, Blood 132 mg/dL (70-99); Potassium, Blood 2.9 mmol/L (3.5-5.5); Salicylate <1.7 mg/dL (2.8-20.0); Sodium, Blood 141 mmol/L (136-145); Total Protein, Blood 7.2 g/dL (6.4-8.2)
[2025-08-22 00:23] LABS: Source, Urine Clean Catch
[2025-08-22 00:24] LABS: Magnesium, Blood 2.3 mg/dL (1.6-2.4)
[2025-08-22 00:29] LABS: Bilirubin, Urine Neg (Neg); Glucose Qualitative, Urine Neg (Neg); Ketones, Urine Neg (Neg); Leukocyte Esterase, Urine Neg (Neg); Protein, Urine Neg (Neg); Specific Gravity, Urine 1.015 (1.003-1.022); Urobilinogen, Urine NORM (Normal)
[2025-08-22 00:30] LABS: Color, Urine Yellow (P-Yellow)
[2025-08-22] MEDS ORDERED: NS 1,000 ML IV ONE (00:30)
[2025-08-22 00:42] LABS: U Amphetamine Screen Not Detected; U Barbiturate Screen Not Detected; U Benzodiazapine Screen Not Detected; U Buprenorphine Screen Not Detected; U Cannabinoids Screen DETECTED; U Cocaine Screen Not Detected; U Methadone Screen Not Detected; U Methamphetamine Screen Not Detected; U Opiates Screen Not Detected; U Oxycodone Screen Not Detected; U Phencyclidine Screen Not Detected
[2025-08-22] MEDS ORDERED: NS 1,000 ML IV SCH (00:45)
[2025-08-22 08:05] VITALS: BP 125/76
== END 2025-08-22 08:12 | disposition home or self-care (01) ==
LOC: ER 20:13 → EOR 20:14
PROVIDERS: ADMIT Emergency Medicine
DX: F10.129 Alcohol abuse with intoxication, unspecified (principal); R45.851 Suicidal ideations; E87.1 Hypo-osmolality and hyponatremia; E87.6 Hypokalemia; R74.01 Elevation of levels of liver transaminase levels; F90.9 Attention-deficit hyperactivity disorder, unspecified type; F84.0 Autistic disorder; Z79.899 Other long term (current) drug therapy; Z88.5 Allergy status to narcotic agent; Z88.6 Allergy status to analgesic agent; Z91.030 Bee allergy status
CPT/HCPCS: 80053; 80320; 81003; 81025; 83735; 85025; 93005; 93010; 96365; 96366; 96367; 96375; 99285-25; G0378; G0480; J2405; J2765; J3475; J3480; J7030; J7050